=== PATIENT | male | born 1990 | race Caucasian/White ===

== ENCOUNTER 2023-07-09 10:06 | Inpatient (IN) | payer OTHER ==
[2023-07-09 10:23] VITALS: BMI 30.9
[2023-07-09] MEDS ORDERED: SODIUM CHLORIDE 0.9% 500 ML INFUS.BAG IV ONE (10:27)
[2023-07-09] MEDS ORDERED: KETOROLAC TROMETHAMINE 30 MG/1 ML VIAL IVPUSH ONE (10:27)
[2023-07-09] MEDS ORDERED: morphine CARPU-JECT 2 MG/1 ML DISP.SYRIN IVPUSH ONE ×2 (10:47→13:42)
[2023-07-09] MEDS ORDERED: ONDANSETRON 4 MG/2 ML VIAL IVPUSH ONE (10:47)
[2023-07-09] MEDS ORDERED: ONDANSETRON 4 MG/2 ML VIAL ONE (11:06)
[2023-07-09 11:20] LABS: BASO % 0.2 % (0-2.0); EOS % 0.1 % (0-4.5); HEMATOCRIT 45.9 % (35.4-49); HEMOGLOBIN 15.6 GM/dL (11.7-16.9); MCH 29.7 pg (25.7-33.7); MCHC 33.9 g/dl (32.0-35.9); MEAN CELL VOLUME 87.6 fl (80-96); MEAN PLT VOLUME 7.6 fl (7.5-11.1); MONO % 6.9 % (3.8-10.2); NEUT % 83.8 % (42.8-82.8); PLATELET COUNT 265 10^3/uL (134-434); RBC 5.24 M/mm3 (4.00-5.60); RDW 12.9 % (11.9-15.9); WHITE BLOOD COUNT 13.3 K/mm3 (4.0-10.0)
[2023-07-09 11:26] LABS: INR 1.03 (0.83-1.09)
[2023-07-09 11:34] LABS: EPI CELLS 3 /uL (0-25.1); HYALINE CASTS 2 /uL (0-3.1); PH,URINE 5.5 (5.0-8.0); URINE APPEARANCE CLOUDY; URINE BACTERIA 19 /uL (0-1359); URINE BILIRUBIN NEGATIVE (NEGATIVE); URINE COLOR DK YELLOW; URINE GLUCOSE (UA) NEGATIVE (NEGATIVE); URINE KETONE TRACE (NEGATIVE); URINE LEUK ESTERASE NEGATIVE (NEGATIVE); URINE NITRITE NEGATIVE (NEGATIVE); URINE PROTEIN 1+ (NEGATIVE)
[2023-07-09 11:43] LABS: POTASSIUM 4.2 mmol/L (3.5-5.1)
[2023-07-09 11:45] LABS: BLOOD UREA NITROGEN 17.5 mg/dL (7-18)
[2023-07-09 11:48] LABS: CREATININE 1.4 mg/dL (0.55-1.3)
[2023-07-09 12:21] LABS: URINE RBC 64.4 /uL (0-23.9); URINE WBC 59.3 /uL (0-25.8)
[2023-07-09] MEDS ORDERED: CEFTRIAXONE 1 GM in DEXTROSE 5%-WATER - 100 ML IVPB ONE (13:45)
[2023-07-09] MEDS ORDERED: TAMSULOSIN HCL 0.4 MG CAP PO ONE (13:45)
[2023-07-09] MEDS ORDERED: TAMSULOSIN HCL 0.4 MG CAP ONE (13:55)
[2023-07-09] MEDS ORDERED: CEFTRIAXONE 1 GM/50 ML BAG ONE (13:55)
[2023-07-09] MEDS ORDERED: FAMOTIDINE 20 MG/50 ML IVPB 20 MG/50 ML MG IVPB ONE ×2 (14:24→14:28)
[2023-07-09] MEDS ORDERED: morphine CARPU-JECT 4 MG/1 ML DISP.SYRIN IVPUSH PRN (14:52)
[2023-07-09] MEDS ORDERED: ONDANSETRON 4 MG/2 ML VIAL IVPUSH PRN (14:58)
[2023-07-09] MEDS ORDERED: LACTATED RINGERS SOLUTION 1,000 ML IV SCH (15:00)
[2023-07-09] MEDS: SODIUM CHLORIDE 1,000 ML IV SCH (21:07)
[2023-07-10 08:46] LABS: BASO % 0.5 % (0-2.0); EOS % 0.2 % (0-4.5); HEMATOCRIT 38.8 % (35.4-49); HEMOGLOBIN 13.5 GM/dL (11.7-16.9); LYMPH % 18.9 % (8-40); MCH 30.5 pg (25.7-33.7); MCHC 34.9 g/dl (32.0-35.9); MEAN CELL VOLUME 87.5 fl (80-96); MEAN PLT VOLUME 7.6 fl (7.5-11.1); MONO % 10.1 % (3.8-10.2); NEUT % 70.3 % (42.8-82.8); PLATELET COUNT 217 10^3/uL (134-434); RBC 4.44 M/mm3 (4.00-5.60); RDW 12.9 % (11.9-15.9); WHITE BLOOD COUNT 8.6 K/mm3 (4.0-10.0)
[2023-07-10] MEDS: SODIUM CHLORIDE 1,000 ML IV SCH (09:10)
[2023-07-10] MEDS ORDERED: CEFTRIAXONE 1 GM in DEXTROSE 5%-WATER - 50 ML IVPB SCH (10:00)
[2023-07-10] MEDS ORDERED: ONDANSETRON 4 MG/2 ML VIAL IVPUSH PRN ×3 (10:40→11:55)
[2023-07-10] MEDS ORDERED: LACTATED RINGERS SOLUTION 1,000 ML IV SCH ×3 (10:45→17:06)
[2023-07-10] MEDS ORDERED: IOHEXOL 300 MG/ML INFUS..BTL IV ONE (10:55)
[2023-07-10] MEDS ORDERED: MIDAZOLAM HCL 2 MG/2 ML SINGLE DOSE VIAL ONE ×2 (10:59→11:06)
[2023-07-10] MEDS ORDERED: PROPOFOL 20 ML ONE (10:59)
[2023-07-10] MEDS ORDERED: ONDANSETRON 4 MG/2 ML VIAL ONE ×2 (11:13→12:20)
[2023-07-10] MEDS ORDERED: DEXAMETHASONE SOD PHOSPHATE 4 MG/1 ML VIAL ONE (11:13)
[2023-07-10] MEDS ORDERED: KETOROLAC TROMETHAMINE 30 MG/1 ML VIAL ONE (11:13)
[2023-07-10 11:20] LABS: POTASSIUM 3.5 mmol/L (3.5-5.1)
[2023-07-10 11:28] LABS: CREATININE 1.3 mg/dL (0.55-1.3)
[2023-07-10 11:30] LABS: TOT PROT 6.7 g/dl (6.4-8.2)
[2023-07-10 11:38] LABS: BLOOD UREA NITROGEN 15.7 mg/dL (7-18)
[2023-07-10 11:41] LABS: CALCIUM 8.9 mg/dL (8.5-10.1)
[2023-07-10 11:43] LABS: MAGNESIUM 2.1 mg/dL (1.8-2.4)
[2023-07-10 11:45] LABS: ALBUMIN 3.4 g/dl (3.4-5.0); PHOSPHOROUS 3.2 mg/dL (2.5-4.9)
[2023-07-10] MEDS ORDERED: SODIUM CHLORIDE 1,000 ML IV SCH (11:55)
[2023-07-10 22:43] VITALS: RESP 18
[2023-07-11 06:45] VITALS: BP 125/69; PULSE 70; TEMP 98.6
[2023-07-11] MEDS ORDERED: CEFTRIAXONE 1 GM in DEXTROSE 5%-WATER - 50 ML IVPB SCH (10:00)
[2023-07-18 21:23] LABS: CA OXALATE MONOHYDR. 100 % (.); WEIGHT 21 mg (.)
== END 2023-07-11 11:43 | disposition left against medical advice (07) | DRG 443 ==
LOC: JER 10:06 → INTOOBSV 13:09 → JERBED 13:09 → UNDOADMOB 13:09 → JERBED 14:57 → J7W 15:14 → OBSVTOIN 07-10 09:40
PROVIDERS: ADMIT Internal Medicine
PROC: 0T5 Urinary System, Destruction (ICD-10-PCS; principal; 2023-07-10 13:00)
PROC: 0T773DZ Dilation of Left Ureter with Intraluminal Device, Percutaneous Approach (ICD-10-PCS; 2023-07-10 13:00)
DX: N13.2 Hydronephrosis with renal and ureteral calculous obstruction (principal); F12.90 Cannabis use, unspecified, uncomplicated; N17.9 Acute kidney failure, unspecified
CPT/HCPCS: 36415; 74176-TC; 76000-TC-FY; 80048; 80053; 81003; 82360; 83735; 84100; 85025; 85610; 86850; 86900; 86901; 87086; 88300-TC; 93005; 93010; 94760; 99285-25; C1758; C2617; G0378